=== PATIENT | male | born 1965 | race Caucasian/White ===

== ENCOUNTER 2018-06-09 13:19 | Day surgery (SDC) | payer OTHER, SELFPAY ==
--- NOTE | 2018-06-09 | PATH_ITS ---
[facility] Accession Number: [id number] . 01 Material submitted: . PART A: TRANSVERSE COLON POLYP AT 65CM PART B: SIGMOID COLON POLYP AT 30CM PART C: RECTOSIGMOID POLYP AT 20CM PART D: RECTAL POLYP AT 8CM . 02 Diagnosis: A. Transverse Colon Polyp at 65 cm: Tubular adenoma. . B. Sigmoid Colon Polyp at 30 cm: Colonic mucosa with no diagnostic abnormality, consistent with polypoid redundancy. Negative for serrated lesion, dysplasia or malignancy. . C. Rectosigmoid Colon Polyps at 20 cm: Fragments of tubular adenoma/tubulovillous adenoma (two polyps removed). Negative for high-grade dysplasia or malignancy. . D. Rectal Polyp at 8 cm: Tubulovillous adenoma. Negative for high-grade dysplasia or malignancy. [facility]/06/16/2018 . 02 Electronically signed: . Anthony Huerta MD, PhD, Pathologist NPI- [id number] . 01 Gross description: . Received four formalin-filled containers each labeled with the patient's name. . A. In a container labeled transverse colon polyp at 65 cm, the specimen consists of two 0.1 to 0.3 cm portions of tissue. Entirely submitted in cassette A. B. In a container labeled sigmoid colon polyp at 30, the specimen consists of a 0.4 cm portion of tissue. Entirely submitted in cassette B. C. In a container labeled rectosigmoid polyp at 20 cm are multiple less than 0.1 to 1.0 cm portions of tissue. The smallest fragments are filtered, wrapped and entirely submitted in cassette C1. The largest piece is trisected and totally submitted in cassette C2. D. In a container designated rectal polyp at 8 cm, source confirmed per client, are multiple less than 0.1 to 0.3 cm portions of tissue, which are filtered, wrapped and entirely submitted in cassette D. ([facility]:[id number]) /[facility] . 02 Pathologist provided ICD-10: D12.3, D12.7, D12.8, K63.5 . 02 CPT . 646112, 704811, [id number], [id number] Performed at: 01 [facility] [address] [place] [address], [place], [place] [id number] MD Clive Hale MD Phone: [phone] Performed at: 02 [facility] [address] [place], [place] [id number] MD Luis Fernando Trotter MD Phone: [phone]
[2018-06-09 13:49] VITALS: BP 130/84; PULSE 90; RESP 16; TEMP 36.6; O2SAT 99
[2018-06-09] MEDS: SODIUM CHLORIDE 0.9% 1,000 ML 200 ML IV (13:53)
--- NOTE | 2018-06-09 14:34 | PM.HP.1 ---
History of Present Illness Date Patient Seen: 06/09/18 Time Patient Seen: 14:34 Chief complaint: [id number] SCREENING COLONOSCOPY Narrative: 53-year-old male who presents for colorectal screening. He has never had any type of previous examination for such. He denies any a gastrointestinal symptoms. No nausea, vomiting, loss of appetite, unexplained weight loss, abdominal pain, change in bowel habits, diarrhea, constipation, melena, hematochezia, or bright red blood per rectum. Patient History Medical History Hypercholesterolemia (Acute) Surgical History History of arthroscopy of both shoulders (Acute) Family & Social History Family History: Reviewed 06/09/18 by Vicente Henson MD Social History: No tobacco use Consumes occasional alcoholic beverage Meds Home Medications Medication Instructions Recorded Confirmed Type atorvastatin 20 mg PO DAILY 06/09/18 06/09/18 History bimatoprost [Lumigan] 1 drp/day EYE-BOTH DAILY 06/09/18 06/09/18 History Allergies Allergy/AdvReac Type Severity Reaction Status Date / Time No Known Drug Allergies Allergy Verified 06/09/18 13:50 Review of Systems Review of Systems All systems reviewed & are unremarkable except as noted in HPI and below Exam Vital Signs (past 8 hours): - 06/09/18 13:49 Temperature 97.8 F Pulse Rate 90 Respiratory Rate 16 Blood Pressure 130/84 H Pulse Oximetry 99 Oxygen Delivery Method Room Air Narrative Exam Narrative: Well-nourished well-developed male in no acute distress. Alert oriented x3 Sclera nonicteric Chest clear to auscultation bilaterally with regular rate and rhythm. No murmurs, gallops, rubs Abdomen is soft, nondistended, nontender, no masses Extremities show no clubbing, cyanosis, or edema Objective Labs Labs: No recent laboratory radiographic studies for review Assessment & Plan Plan: Assessment/Plan Narrative: 53-year-old male requiring colorectal screening by age criteria. I recommend colonoscopy. Technical details of the procedure were discussed. Risks, benefits, alternatives were explained. Risks including but not limited to sedation, aspiration, bleeding, pain, missed lesion, incomplete examination, need for further radiographic studies, colonic perforation, need for major abdominal surgery, and all attendant risks of major surgery were explained in detail. All questions were answered to his satisfaction, and he voiced understanding. Consent was placed on the chart. We will proceed as above.
--- NOTE | 2018-06-09 14:38 | P.HP_ITS ---
History of Present Illness Date Patient Seen: 06/09/18 Time Patient Seen: 14:34 Chief complaint: [id number] SCREENING COLONOSCOPY Narrative: 53-year-old male who presents for colorectal screening. He has never had any type of previous examination for such. He denies any a gastrointestinal symptoms. No nausea, vomiting, loss of appetite, unexplained weight loss, abdominal pain, change in bowel habits, diarrhea, constipation, melena, hematochezia, or bright red blood per rectum. Patient History Medical History Hypercholesterolemia (Acute) Surgical History History of arthroscopy of both shoulders (Acute) Family & Social History Family History: Reviewed 06/09/18 by Vicente Henson MD Social History: No tobacco use Consumes occasional alcoholic beverage Meds Home Medications Medication Instructions Recorded Confirmed Type atorvastatin 20 mg PO DAILY 06/09/18 06/09/18 History bimatoprost [Lumigan] 1 drp/day EYE-BOTH DAILY 06/09/18 06/09/18 History Allergies Allergy/AdvReac Type Severity Reaction Status Date / Time No Known Drug Allergies Allergy Verified 06/09/18 13:50 Review of Systems Review of Systems All systems reviewed & are unremarkable except as noted in HPI and below Exam Vital Signs (past 8 hours): - 06/09/18 13:49 Temperature 97.8 F Pulse Rate 90 Respiratory Rate 16 Blood Pressure 130/84 H Pulse Oximetry 99 Oxygen Delivery Method Room Air Narrative Exam Narrative: Well-nourished well-developed male in no acute distress. Alert oriented x3 Sclera nonicteric Chest clear to auscultation bilaterally with regular rate and rhythm. No murmurs , gallops, rubs Abdomen is soft, nondistended, nontender, no masses Extremities show no clubbing, cyanosis, or edema Objective Labs Labs: No recent laboratory radiographic studies for review Assessment & Plan Plan: Assessment/Plan Narrative: 53-year-old male requiring colorectal screening by age criteria. I recommend colonoscopy. Technical details of the procedure were discussed. Risks, benefits, alternatives were explained. Risks including but not limited to sedation, aspiration, bleeding, pain, missed lesion, incomplete examination, need for further radiographic studies, colonic perforation, need for major abdominal surgery, and all attendant risks of major surgery were explained in detail. All questions were answered to his satisfaction, and he voiced understanding. Consent was placed on the chart. We will proceed as above.
--- NOTE | 2018-06-09 14:38 | PM.PREOP ---
Pre-operative Note Interval Note Pre-op Check: Yes History & Physical Reviewed by Physician, Yes Exam Performed and Yes History & Physical exam performed today by Physician Changes: No H&P completed within 30 days and has changed as indicated here:: Patient seen and examined today. History physical examination documented and placed on the chart today. We will proceed with colonoscopy for colorectal screening as planned today. ASA Class (for procedural sedation): II
[2018-06-09] MEDS: fentaNYL 250 MCG/5 ML INJ IV (14:53)
[2018-06-09] MEDS: MIDAZOLAM 5 MG/5 ML VIAL IV (14:53)
--- NOTE | 2018-06-09 15:23 | PM.OP.ENDO ---
Operative Date/Time/Diagnoses Date of procedure: 06/09/18 Time of procedure: 15:23 Pre-op diagnosis: Colorectal screening Post-op diagnosis: other (Diverticulosis and multiple colorectal polyps) Procedure & Clinicians Study performed: 1. Sedation per surgeon 2. Colonoscopy with hot snare and cold forceps polypectomies 3. [place] ink tattoo rectosigmoid colon polypectomy site at 20 cm from anal verge Same procedure as scheduled: Yes Indications: 53-year-old male who presents for colorectal screening by age criteria. Colonoscopy is recommended. Surgeon: Vicente Henson Procedure Notes SCOAP/Timeout: Yes Procedure in detail: After obtaining informed consent, the patient was brought to the GI suite and placed in the left lateral decubitus position on the examination table. After placement of appropriate monitors, the patient was given incremental doses of Versed and Fentanyl until an appropriate level of sedation was achieved. A time out was held per SCOAP protocol. A digital rectal examination was performed and did not reveal any masses or obstructing lesions. The colonoscope was gently passed into the patient's anus and the entire colon navigated to the level of the cecum with minimal difficulty. Terminal ileum was intubated and noted to be grossly normal Once in the cecum, the scope was withdrawn being sure to go before and beyond all mucosal folds and prominences and get an excellent examination. The findings are noted above. At the level of the rectal vault, the scope was retroflexed and the internal anal canal was examined. The scope was straightened and air aspirated from the colon. The instrument was removed from the patient's body and the procedure was concluded. The patient was allowed to awaken from sedation without difficulty and taken to the post-anesthesia care unit in good condition. Scope withdrawal time: 29:10 min Sedation minutes: 32 Findings: diverticulosis, polyp (Multiple colorectal polyps) and other findings (Normal terminal ileum) Specimen(s): other (1. Transverse colon polyp at 65 cm 2. Sigmoid colon polyp at 30 cm 3. Rectosigmoid colon polyps x2 at 20 cm 4. Rectal polyp at 8 cm) Recommendations: Colonscopy in 1 year, High fiber diet and Will call with biopsy results Plan for aftercare: 1. Discharged home Follow up: as needed Disposition: PACU
[2018-06-09 15:31] VITALS: BP 111/72; PULSE 97; RESP 14; TEMP 37; O2SAT 96
--- NOTE | 2018-06-09 15:46 | SUR.PHASEII ---
pt tolerating coffee and crackers, DR SHELTON SPOKE WITH PT REGARDING FINDINGS. D/C INSTRUCTIONS REVIEWED WITH PT WITH VERBALIZED UNDERSTANDING.
[2018-06-09 15:50] VITALS: BP 117/71; PULSE 88; RESP 16; TEMP 36.2; O2SAT 98
== END 2018-06-09 16:10 | disposition home or self-care (01) ==
PROVIDERS: PCP Family Medicine; Visit Provider Surgery
PROC: 0DJD8ZZ Inspection of Lower Intestinal Tract, Via Natural or Artificial Opening Endoscopic (ICD-10-PCS; CPT 45378; principal; 2018-06-09 15:00)
DX: Z12.11 Encounter for screening for malignant neoplasm of colon (principal); D12.3 Benign neoplasm of transverse colon; D12.5 Benign neoplasm of sigmoid colon; D12.8 Benign neoplasm of rectum; E78.5 Hyperlipidemia, unspecified
CPT/HCPCS: 45385; 45381; 45380; 99152; 99153; J2250; J3010

== ENCOUNTER 2019-07-31 08:08 | Day surgery (SDC) | payer OTHER, SELFPAY ==
[2019-07-31 08:33] VITALS: BP 122/80; PULSE 91; RESP 16; TEMP 36.6; O2SAT 97; BMI 26.4
--- NOTE | 2019-07-31 08:43 | P.HP_ITS ---
History of Present Illness History of Present Illness Date Patient Seen: 07/31/19 Time Patient Seen: 08:43 Chief complaint: [id number] SCREENING COLONOSCOPY Narrative: Patient presents for colorectal screening. They had a previous screening 1 year ago which demonstrated polyps. On further history denies any recent gastrointestinal symptoms. No nausea, vomiting, abdominal pain, loss of appetite, unexplained weight loss, change in bowel habits, diarrhea, constipatio n, melena, hematochezia, or bright red blood per rectum. Patient History Medical History Hypercholesterolemia (Acute) Surgical History History of arthroscopy of both shoulders (Acute) Meds Home Medications and Allergies Home Medications Medication Instructions Recorded Confirmed Type Lumigan 1 drp/day EYE-BOTH DAILY 06/09/18 07/31/19 History atorvastatin 20 mg PO DAILY 06/09/18 07/31/19 History Allergies Allergy/AdvReac Type Severity Reaction Status Date / Time No Known Drug Allergies Allergy Verified 07/18/19 15:39 Review of Systems Review of Systems ROS Unobtainable: All systems reviewed & are unremarkable except as noted in HPI and below Exam Narrative Exam Narrative: General-adult male no acute distress, well nourished HEENT-moist mucous membranes, no scleral icterus Neck-supple with full range of motion, no lymphadenopathy Chest- no labored respirations, clear to auscultation bilaterally Cardiac-regular rate and rhythm Abdomen-soft, nontender, non distended Extremities-no edema, warm well perfused Neurological-alert and oriented x 3. No focal deficits Skin-normal temperature and turgor, no rashes or ulcers Assessment & Plan Assessment and plan (1) Screening for colon cancer: Current visit: Yes Status: Acute Assessment & Plan narrative: Patient is requiring colorectal screening. Col onoscopy is recommended. Technical details were discussed. Risks, benefits, alternatives explained. Risks including but not limited to sedation, aspiration, bleeding, pain, missed lesion, incomplete examination, need for further radiographic studies, colonic perforation, need for major abdominal surgery, and all attendant risks major surgery were discussed at length. All questions were answered to their satisfaction, and they voiced understanding.
[2019-07-31] MEDS: SODIUM CHLORIDE 0.9% 1,000 ML 200 ML IV (08:49)
[2019-07-31] MEDS: MIDAZOLAM 5 MG/5 ML VIAL IV (09:57)
[2019-07-31] MEDS: fentaNYL 250 MCG/5 ML INJ IV (09:58)
[2019-07-31 10:04] VITALS: BP 123/86; PULSE 77; RESP 16; TEMP 36.1; O2SAT 96
[2019-07-31 10:09] VITALS: BP 108/72; PULSE 69; RESP 17; O2SAT 96
--- NOTE | 2019-07-31 10:12 | P.OP.ENDO_ITS ---
Operative Date/Time/Diagnoses Date of procedure: 07/31/19 Time of procedure: 10:12 Pre-op diagnosis: Screening colonoscopy Post-op diagnosis: same Procedure & Clinicians Study performed: Colonoscopy Same procedure as scheduled: Yes Indications: 54-year-old male with a previous colonoscopy 1 year ago that demonstrated multiple polyps presents for a repeat screening Surgeon: Aaron Morrison Procedure Notes SCOAP/Timeout: Performed Procedure in detail: A digital rectal exam was performed that was negative for internal masses. The scope was carefully inserted into the rectum and advanced into the colon. Ileocecal valve was reached. The scope was then slowly withdrawn. The colon was normal in its appearance there were no polyps masses or evidence of diverticular disease. The scope was retroflexed within the rec jacqueline and demonstrated grade 1 internal hemorrhoids. Scope was then withdrawn Scope withdrawal time: 10 Sedation minutes: 20 Specimen(s): none sent Complications: none Impression: Normal Post-procedure Recommendations: Colonscopy in 10 years Disposition: same day surgery
[2019-07-31 10:14] VITALS: BP 107/67; PULSE 65; RESP 16; O2SAT 96
[2019-07-31 10:19] VITALS: BP 126/80; PULSE 69; RESP 17; TEMP 36.3; O2SAT 100
[2019-07-31 10:25] VITALS: BP 111/69; PULSE 73; RESP 14; TEMP 36.6; O2SAT 100
== END 2019-07-31 10:35 | disposition home or self-care (01) ==
PROVIDERS: PCP Family Medicine; Visit Provider Surgery
PROC: 0DJD8ZZ Inspection of Lower Intestinal Tract, Via Natural or Artificial Opening Endoscopic (ICD-10-PCS; CPT 45378; principal; 2019-07-31 08:45)
DX: Z86.010 Personal history of colon polyps (principal); K64.0 First degree hemorrhoids
CPT/HCPCS: 45378; 99152; J2250; J3010

== ENCOUNTER → 2021-02-15 16:59 | Outpatient (CLI) | payer OTHER, SELFPAY ==
--- NOTE | 2021-02-15 17:00 | DI.RAD.S_ITS ---
PROCEDURE: XR FINGER LT MIN 2V INDICATIONS: smashed finger TECHNIQUE: AP hand, 2 views of the 3rd finger(s) acquired. COMPARISON: None. FINDINGS: Gauze material is seen, which minimally limits evaluation. Bones: No fractures or dislocations. No suspicious bony lesions. Soft tissues: No suspicious soft tissue calcifications. IMPRESSION: No displaced fractures are seen on these plain films. If there is focal tenderness, or other clinical concern for a fracture not seen on these images in this patient with a given history of trauma, please consider a dedicated CT or a short-term followup plain film series (in 1-2 weeks) for further evaluation. Dictated by: Justin Hayes M.D. on 02/15/2021 at 16:11 Approved by: Justin Hayes M.D. on 02/15/2021 at 16:11
== END ==
PROVIDERS: PCP Physician Assistant; Referring Provider Physician Assistant; Visit Provider Physician Assistant
DX: S67.10XA Crushing injury of unspecified finger(s), initial encounter (principal); X58.XXXA Exposure to other specified factors, initial encounter
CPT/HCPCS: 73140

== ENCOUNTER → 2023-05-12 12:13 | Outpatient (CLI) | payer OTHER, SELFPAY ==
[2023-05-12 12:56] LABS: Influenza A - CEPHEID Flu A NEGATIVE (NEGATIVE); Influenza B - CEPHEID Flu B NEGATIVE (NEGATIVE); Respiratory Syncytial Virus Negative (Negative)
[2023-05-12 13:02] LABS: COVID-19 CEPHEID 4-PLEX PCR Negative (Negative)
== END ==
PROVIDERS: PCP Family Medicine; Visit Provider Nurse Practitioner Family
DX: R05.1 Acute cough (principal); J02.9 Acute pharyngitis, unspecified; Z20.822 Contact with and (suspected) exposure to COVID-19
CPT/HCPCS: 0241U; 87070